=== PATIENT | male | born 1985 | race Caucasian/White ===

== ENCOUNTER 2021-05-28 10:02 | Emergency (ER) | payer SELFPAY ==
[~2021-05-28] VITALS: Ht 172.7 cm; Wt 103.0 kg
[2021-05-28 10:12] VITALS: BP 160/101
[2021-05-28] MEDS ORDERED: LORazepam 1 MG TABLET PO ONE (10:15)
--- NOTE | 2021-05-28 10:28 | PHYS DOC ---
Past History Past Medical History: Anxiety Past Surgical History: No Surgical History Alcohol Use: Occasionally Adult General Chief Complaint Chief Complaint: ANXIETY/PANIC ATTACK HPI HPI Patient is a 36-year-old male presenting for panic attack. He has known history of anxiety and depression, takes Klonopin for this 3 times daily. Reports no major changes or life stressors but reports he has had increased frequency of panic attacks in the last week which is unusual for him. Only known recent change in daily routine is traveling to [place] for work. He has no HI/SI. Reports he was on his way to work when he felt a panic attack coming and immediately presented to our ER for evaluation. No other medical conditions, no other medications taken on a daily basis, denies any drug use Review of Systems Review of Systems Fourteen body systems of review of systems have been reviewed. See HPI for pertinent positives and negative responses, other silverio all other systems are negative, non-pertinent or non-contributory Current Medications Current Medications Current Medications Medications (Trade) Dose Ordered Sig/Ulises Start Time Stop Time Status Last Admin Dose Admin Lorazepam (Ativan) 1 mg 1X ONCE 05/28/21 10:15 05/28/21 10:21 DC 05/28/21 10:21 1 MG Allergies Allergies Allergies Coded Allergies Type Severity Reaction Last Updated Verified hydromorphone Allergy Unknown 05/28/21 Yes Physical Exam Physical Exam Constitutional: Well developed, well nourished, anxious appearing but is non- toxic appearance. HENT: Normocephalic, atraumatic, bilateral external ears normal, oropharynx moist, no oral exudates, nose normal. Eyes: PERRLA, EOMI, conjunctiva normal, no discharge. Neck: Normal range of motion, no tenderness, supple, no stridor. Cardiovascular: Heart rate tachycardic, sinus rhythm, no murmurs rubs or gallops Lungs & Thorax: Bilateral breath sounds clear to auscultation Abdomen: Bowel sounds normal, soft, no tenderness, no masses, no pulsatile masses. Nonsurgical abdomen, no peritoneal signs Skin: Warm, dry, no erythema, no rash. Back: No tenderness, no CVA tenderness. Extremities: No tenderness, no cyanosis, no clubbing, ROM intact, no edema. Neurologic: Alert and oriented X 3, grossly normal motor & sensory function, no focal deficits noted. Psychologic: Anxious affect and mood Current Patient Data Vital Signs Vital Signs Date Time Temp Pulse Resp B/P (MAP) Pulse Ox O2 Delivery O2 Flow Rate FiO2 05/28/21 10:12 97.8 115 24 160/101 (120) 98 EKG EKG [] Radiology/Procedures Radiology/Procedures [] Heart Score C/O Chest Pain: No Risk Factors: Risk Factors: DM, Current or recent (<one month) smoker, HTN, HLP, family history of CAD, obesity. Risk Scores: Risk Factors: DM, Current or recent (<one month) smoker, HTN, HLP, family history of CAD, obesity. Course & Med Decision Making Course & Med Decision Making ABCs unremarkable. I disclosed entirety of ER findings and discussed most likely diagnosis of panic attack. Patient was given 1 mg p.o. Ativan with improvement in symptoms. Extensive discussion had with patient he reports having x1 episode of panic attack a few days ago. States he has been well controlled on current outpatient medication regimen and has no known identifiable stressor or exposure. Admits he is overdue for seeing primary care physician for outpatient follow-up and his outpatient psychiatrist. There is no HI or SI, patient feels stable going home as he has prior safety plan in place which I feel is appropriate. Ultimately, I stressed need for close outpatient follow-up to review today's ER visit. Strict return precautions were also discussed at length with good understanding by patient. Patient voiced understanding and agreement with the plan. Patient knows to come back for repeat evaluation if concerning signs or symptoms present prior to outpatient follow-up. Hemodynamically stable, ambulatory and well-appearing at time of disposition. Dragon Disclaimer Dragon Disclaimer This electronic medical record was generated, in whole or in part, using a voice recognition dictation system. Departure Departure: Impression: Primary Impression: Panic attack Additional Impression: History of anxiety Disposition: HOME / SELF CARE / HOMELESS Condition: IMPROVED Referrals: PCP,NO (PCP) Patient Instructions: Anxiety and Panic Attacks Additional Instructions: You were seen in the ED for evaluation of anxiety and panic attacks. Anxiety is a serious medical condition with unfortunate effects on daily living. You should utilize the Behavior Health resources and your primary care physician for further management of your symptoms. If any concerning signs or symptoms prese nt prior to outpatient follow-up please do not hesitate to come back for repeat evaluation. It was a pleasure to take care of you and I wish you the best going forward Problem Qualifiers RENZO HERNANDEZ DO May 28, 2021 10:28
== END 2021-05-28 11:53 | disposition home or self-care (01) ==
LOC: ER 10:02
DX: F41.0 Panic disorder [episodic paroxysmal anxiety] (principal)
CPT/HCPCS: 99283